=== PATIENT | female | born 1965 | race Two or more races ===

== ENCOUNTER → 2016-07-28 | Day surgery (SDC) | payer OTHER ==
[~2016-07-28] MED LIST: ASPIRIN EC 325 MG TAB PO ONE; DIAZEPAM 5 MG TAB ONE; DIAZEPAM 5 MG TAB PO ONE; FAMOTIDINE 20 MG TAB ONE; FAMOTIDINE 20 MG TAB PO ONE; HEPARIN 10,000 UNIT/10 ML MDV ONE; IOPAMIDOL (ISOVUE-300) 200 ML BTL IV ONE; LIDOCAINE 1% 30 ML SDV ONE; MIDAZOLAM 2 MG/2 ML VIAL ONE; NS 1,000 ML IV ONE; diphenhydrAMINE 25 MG CAP PO ONE; fentaNYL 100 MCG/2 ML INJ ONE
--- NOTE | 2016-07-28 07:49 | CPEKG ---
Heart Rate: 109 RR Interval: 550 P-R Interval: 184 QRSD Interval: 74 QT Interval: 368 QTC Interval: 496 P [place]: 39 QRS [place]: -18 T Wave [place]: 113 EKG Severity - ABNORMAL ECG - EKG Impression: SINUS TACHYCARDIA EKG Impression: LVH WITH SECONDARY REPOLARIZATION ABNORMALITY Electronically Signed By: Rene Burt 28-Jul-2016 14:33:47
[2016-07-28 08:06] LABS: % IMMATURE GRANULYOCYTES 0.4 % (0.0-1.1); ABSOLUTE IMMATURE GRANULOCYTES 0.04 10^3/uL (0.00-0.10); ADD DIFF? NO; ADD MORPH? NO; ADD SCAN? NO; ATYPICAL LYMPHOCYTE FLAG 0 (0-99); FRAGMENT RBC FLAG 0 (0-99); HEMATOCRIT 40.5 % (38.0-47.0); LEFT SHIFT FLG 0 (0-99); LIPEMIA HEMOLYSIS FLAG 90 (0-99); MEAN CELL HEMOGLOBIN CONCENTR. 34.6 g/dL (32.4-36.7); MEAN CELL VOLUME 89.6 fL (81.5-99.8); PLATELET CLUMPS FLAG 10 (0-99); PLATELET COUNT 181 10^3/uL (150-400); RED BLOOD CELL COUNT 4.52 10^6/uL (4.18-5.33); RED CELL DISTRIBUTION WIDTH 13.2 % (11.5-15.2)
[2016-07-28 08:14] LABS: INR 1.22 (0.83-1.16); PROTIME(PATIENT) 15.4 SEC (12.0-15.0)
[2016-07-28 08:19] LABS: ANION GAP 9 mEq/L (8-16); CALCIUM 9.5 mg/dL (8.5-10.4); CARBON DIOXIDE 23 mEq/l (22-31); CHLORIDE 111 mEq/L (97-110); CHOLESTEROL 181 mg/dL (140-220); CHOLESTEROL/HDL RATIO 4.64 RATIO (1.00-4.44); CREATININE 0.7 mg/dL (0.6-1.0); GLOMERULAR FILTRATION RATE > 60; GLUCOSE 94 mg/dL (70-100); HIGH DENSITY LIPOPROTEIN 39 mg/dL (40-85); LDL/HDL RATIO 2.77 RATIO (1.00-3.22); LOW DENSITY LIPOPROTEIN 108 mg/dL (80-100); MAGNESIUM 1.8 mg/dL (1.6-2.3); NON-HIGH DENSITY LIPOPROTEIN 142 mg/dL (90-129); POTASSIUM 4.3 mEq/L (3.5-5.2); SODIUM 143 mEq/L (134-144); TRIGLYCERIDE 171 mg/dL (35-135); VERY LOW DENSITY LIPOPROTEINS 34 mg/dL (8-25)
== END | disposition home or self-care (01) ==
LOC: FCATH 07:22
PROVIDERS: ATTEND Internal Medicine Cardiovascular Disease
DX: I73.9 Peripheral vascular disease, unspecified (principal); Z53.09 Procedure and treatment not carried out because of other contraindication
CPT/HCPCS: 86870-90; 86905-90; 99001-90; J1644; J2250; J3010; Q9967

== ENCOUNTER 2016-08-11 09:34 | Day surgery (SDC) | payer OTHER ==
[2016-08-11] MEDS ORDERED: FAMOTIDINE 20 MG TAB PO ONE (09:37)
[2016-08-11] MEDS ORDERED: NS 1,000 ML IV ONE (09:37)
[2016-08-11] MEDS ORDERED: ASPIRIN EC 325 MG TAB PO ONE ×2 (09:37→10:22)
[2016-08-11] MEDS ORDERED: diphenhydrAMINE 25 MG CAP PO ONE ×2 (09:37→10:21)
[2016-08-11] MEDS ORDERED: DIAZEPAM 5 MG TAB PO ONE (09:37)
--- NOTE | 2016-08-11 10:04 | CPEKG ---
Heart Rate: 80 RR Interval: 750 P-R Interval: 232 QRSD Interval: 76 QT Interval: 440 QTC Interval: 508 QRS [place]: -16 T Wave [place]: 92 EKG Severity - ABNORMAL ECG - EKG Impression: ATRIAL-PACED RHYTHM FIRST DEGREE AV BLOCK EKG Impression: LVH WITH SECONDARY REPOLARIZATION ABNORMALITY EKG Impression: BORDERLINE PROLONGED QT INTERVAL Electronically Signed By: Cesar Diaz 11-Aug-2016 13:51:01
[2016-08-11] MEDS ORDERED: FAMOTIDINE 20 MG TAB ONE (10:21)
[2016-08-11] MEDS ORDERED: DIAZEPAM 5 MG TAB ONE (10:22)
[2016-08-11 10:37] LABS: % IMMATURE GRANULYOCYTES 0.3 % (0.0-1.1); ABSOLUTE IMMATURE GRANULOCYTES 0.04 10^3/uL (0.00-0.10); ADD DIFF? NO; ADD MORPH? NO; ADD SCAN? NO; ATYPICAL LYMPHOCYTE FLAG 0 (0-99); FRAGMENT RBC FLAG 0 (0-99); HEMATOCRIT 41.1 % (38.0-47.0); HEMOGLOBIN 14.2 g/dL (12.6-16.3); LEFT SHIFT FLG 0 (0-99); LIPEMIA HEMOLYSIS FLAG 90 (0-99); MEAN CELL HEMOGLOBIN CONCENTR. 34.5 g/dL (32.4-36.7); MEAN CELL VOLUME 89.7 fL (81.5-99.8); MEAN PLATELET VOLUME 11.7 fL (8.7-11.7); PLATELET CLUMPS FLAG 0 (0-99); PLATELET COUNT 174 10^3/uL (150-400); RED BLOOD CELL COUNT 4.58 10^6/uL (4.18-5.33); RED CELL DISTRIBUTION WIDTH 13.4 % (11.5-15.2)
[2016-08-11 10:48] LABS: INR 1.43 (0.83-1.16); PROTIME(PATIENT) 17.4 SEC (12.0-15.0)
[2016-08-11 10:50] LABS: ANION GAP 10 mEq/L (8-16); CALCIUM 9.5 mg/dL (8.5-10.4); CARBON DIOXIDE 21 mEq/l (22-31); CHLORIDE 112 mEq/L (97-110); CHOLESTEROL 178 mg/dL (140-220); CHOLESTEROL/HDL RATIO 4.34 RATIO (1.00-4.44); CREATININE 0.6 mg/dL (0.6-1.0); GLOMERULAR FILTRATION RATE > 60; GLUCOSE 87 mg/dL (70-100); HIGH DENSITY LIPOPROTEIN 41 mg/dL (40-85); LDL/HDL RATIO 2.49 RATIO (1.00-3.22); LOW DENSITY LIPOPROTEIN 102 mg/dL (80-100); MAGNESIUM 1.8 mg/dL (1.6-2.3); NON-HIGH DENSITY LIPOPROTEIN 137 mg/dL (90-129); POTASSIUM 4.2 mEq/L (3.5-5.2); SODIUM 143 mEq/L (134-144); TRIGLYCERIDE 176 mg/dL (35-135); VERY LOW DENSITY LIPOPROTEINS 35 mg/dL (8-25)
[2016-08-11] MEDS ORDERED: NITROGLYCERIN 1,500 MCG/15 ML VIAL MISC ONE (11:13)
[2016-08-11] MEDS ORDERED: BIVALIRUDIN 250 MG/5 ML VIAL IV ONE (11:13)
[2016-08-11] MEDS ORDERED: MIDAZOLAM 2 MG/2 ML VIAL ONE (11:14)
[2016-08-11] MEDS ORDERED: fentaNYL 100 MCG/2 ML INJ ONE (11:14)
[2016-08-11] MEDS ORDERED: LIDOCAINE 1% 30 ML SDV ONE (11:14)
[2016-08-11] MEDS ORDERED: HEPARIN 10,000 UNIT/10 ML MDV ONE (11:15)
[2016-08-11] MEDS ORDERED: IOPAMIDOL (ISOVUE-300) 200 ML BTL ONE (11:15)
[2016-08-11] MEDS ORDERED: IOPAMIDOL (ISOVUE-370) 150 ML BTL IV ONE (11:15)
--- NOTE | 2016-08-11 13:05 | CPIP ---
[f rep st] INVASIVE CARDIAC PROCEDURE DATE OF PROCEDURE: 08/11/2016 PROCEDURE: Abdominal aortography with runoff. INDICATION: 1. Claudication. 2. 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 ACCESS: Patient was prepped and draped in a sterile fashion. 1% lidocaine was used to anesthetize the right inguinal region. A 6[place]izen [place] introducer sheath was placed selectively into the right commo n femoral artery via modified Seldinger technique. Abdominal aortography, a 6-[place]izen [place] pigtail cathet er was placed in the abdominal aorta just below the renal arteries, and position verified by angiogr aphy. Images were obtained via power injection through the [employer] system. The distal abdominal aor ta had mild diffuse disease. There was no significant stenosis, and the distal abdominal aorta bifu rcated into the right and left common iliac arteries. The left common iliac artery was 100% occlude d in the proximal segment. The left common femoral artery reconstituted distally via collaterals. The left common femoral artery then bifurcated into the superficial femoral artery and profunda femo ral artery. The right superficial femoral artery turned into the popliteal artery. Below the knee, there was 3-vessel runoff. There was no significant disease involving the left common femoral timoteo ry, superficial femoral artery, popliteal artery, and below the knee runoff vessels. COMPLICATIONS: None. CONCLUSIONS: 1. 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 2. Plan is for surgical evaluation. /[id number]/MODL
[2016-08-11] MEDS ORDERED: OXYCODONE/APAP 5/325 TAB ONE (14:57)
[2016-08-11] MEDS ORDERED: OXYCODONE/APAP 5/325 TAB PO PRN (15:15)
[2016-08-11] MEDS ORDERED: NITROGLYCERIN 0.4 MG BTL SL PRN (15:15)
[2016-08-11] MEDS ORDERED: HYDROCODONE/APAP 5/325 TAB PO PRN (15:15)
[2016-08-11] MEDS ORDERED: ONDANSETRON 4 MG/2 ML VIAL IVP PRN (15:15)
[2016-08-11] MEDS ORDERED: ATROPINE SULFATE 1 MG/10 ML SYR IVP PRN (15:15)
== END 2016-08-11 17:00 | disposition home or self-care (01) ==
LOC: FCATH 09:34
PROVIDERS: ATTEND Internal Medicine Cardiovascular Disease
PROC: B41D1ZZ Fluoroscopy of Aorta and Bilateral Lower Extremity Arteries using Low Osmolar Contrast (ICD-10-PCS; principal; 2016-08-11)
DX: I73.9 Peripheral vascular disease, unspecified (principal); I74.5 Embolism and thrombosis of iliac artery; I42.2 Other hypertrophic cardiomyopathy; Z95.810 Presence of automatic (implantable) cardiac defibrillator; I48.92 Unspecified atrial flutter; I48.91 Unspecified atrial fibrillation
CPT/HCPCS: C1760; J0583; J1644; J2250; J3010; Q9967

== ENCOUNTER 2016-09-02 06:15 | Inpatient (IN) | payer OTHER ==
[~2016-09-02 06:15] MED LIST changes: -ASPIRIN EC 325 MG TAB PO ONE; -DIAZEPAM 5 MG TAB ONE; -DIAZEPAM 5 MG TAB PO ONE; -FAMOTIDINE 20 MG TAB ONE; -FAMOTIDINE 20 MG TAB PO ONE; -HEPARIN 10,000 UNIT/10 ML MDV ONE; -IOPAMIDOL (ISOVUE-300) 200 ML BTL IV ONE; -LIDOCAINE 1% 30 ML SDV ONE; -MIDAZOLAM 2 MG/2 ML VIAL ONE; -NS 1,000 ML IV ONE; +ceFAZolin 2 GM/DEXTROSE 100 ML IV ONE; -diphenhydrAMINE 25 MG CAP PO ONE; -fentaNYL 100 MCG/2 ML INJ ONE
[2016-09-02] MEDS ORDERED: BUPIVACAINE 0.5% 30 ML SDV ONE (06:44)
[2016-09-02] MEDS ORDERED: THROMBIN (BOVINE) 20,000 UNIT VIAL TP ONE (06:44)
[2016-09-02] MEDS ORDERED: MIDAZOLAM 2 MG/2 ML VIAL ONE ×2 (07:04→10:16)
[2016-09-02] MEDS ORDERED: CEFAZOLIN 2 GM/DEXTROSE/100 ML BAG IV ONE (07:23)
[2016-09-02] MEDS ORDERED: PHENYLEPHRINE 10 MG/ML SDV ONE (07:32)
[2016-09-02] MEDS ORDERED: PROPOFOL 200 MG/20 ML VIAL ONE (07:32)
[2016-09-02] MEDS ORDERED: DEXAMETHASONE 4 MG/ML VIAL ONE (07:32)
[2016-09-02] MEDS ORDERED: ROCURONIUM 50 MG/5 ML VIAL ONE ×2 (07:32→09:23)
[2016-09-02] MEDS ORDERED: fentaNYL 100 MCG/2 ML INJ ONE ×4 (07:33→11:57)
[2016-09-02 07:35] LABS: INR 1.26 (0.83-1.16); PROTIME(PATIENT) 15.8 SEC (12.0-15.0)
[2016-09-02 07:36] LABS: APTT 30.3 SEC (23.0-38.0)
[2016-09-02] MEDS ORDERED: LR 1,000 ML IV ONE (07:36)
[2016-09-02] MEDS ORDERED: LIDO/EPI 2% **for epidural** 20 ML SDV ONE (07:37)
[2016-09-02] MEDS ORDERED: BUPIVACAINE 0.25% 30 ML SDV ONE (07:38)
[2016-09-02] MEDS ORDERED: CITRATE DEXTROSE SOLN 500 ML BAG ONE (07:45)
[2016-09-02 09:07] LABS: BASE EXCESS -2.8 mEq/L (-2.5-2.5); BICARBONATE 21 mEq/L (22-26); MEASURED OXYGEN SATURATION 100 % (92-95); PCO2 35 mmHg (34-38); PO2 218 mmHg (65-75); TCO2 22 mEq/L (23-27)
[2016-09-02] MEDS ORDERED: REMIFENTANIL HCL 1 MG VIAL ONE (09:37)
[2016-09-02] MEDS ORDERED: HEPARIN 10,000 UNIT/10 ML MDV ONE (09:47)
[2016-09-02] MEDS ORDERED: NARCOTIC DRIP BAG-TOTAL ALL TYPES EP PRN (10:10)
[2016-09-02] MEDS ORDERED: NALOXONE HCL 0.4 MG/ML INJ IVP PRN (10:10)
[2016-09-02] MEDS ORDERED: HYDROmorph 10MCG/ML&BUP 0.0625% in 100ML NS EP SCH (10:10)
[2016-09-02] MEDS ORDERED: ONDANSETRON 4 MG/2 ML VIAL IVP PRN ×2 (10:11→11:40)
[2016-09-02] MEDS ORDERED: PROTAMINE SULFATE 50 MG/5 ML VIAL IVP ONE (10:48)
[2016-09-02] MEDS ORDERED: THROMBIN (BOVINE) 20,000 UNIT SPRAY TP ONE (10:49)
[2016-09-02] MEDS ORDERED: ONDANSETRON 4 MG/2 ML VIAL ONE (11:01)
[2016-09-02] MEDS ORDERED: GLYCOPYRROLATE 0.2 MG/1 ML VIAL ONE (11:07)
[2016-09-02] MEDS ORDERED: NEOSTIGMINE METHYLSULFATE 5 MG/5 ML SYR ONE (11:07)
[2016-09-02 11:36] LABS: BASE EXCESS -3.8 mEq/L (-2.5-2.5); BICARBONATE 21 mEq/L (22-26); MEASURED OXYGEN SATURATION 98 % (92-95); PCO2 39 mmHg (34-38); PO2 113 mmHg (65-75); TCO2 22 mEq/L (23-27)
--- NOTE | 2016-09-02 11:37 | POSTOPPROG ---
Post Op Note Date of Operation: 09/02/16 Surgeon: Darrin Zapata Tissue Technologist: MARGARITO Anesthesiologist: HAL Anesthesia: GET(General Endotracheal) Pre-op Diagnosis: LEFT ILIAC OCCLUSION Post-op Diagnosis: SAME Indication: LIMITING CLAUDICATION Procedure: RETROPERITONEAL LEFT AORTO-FEMORAL BYPASS Findings: GOOD POSTOP PULSES/ COMPLETE LEFT COMMON ILIAC OCCLUSION Inf/Abcess present in the surg proc area at time of surgery?: No Depth: Organ Space EBL: 50-100 Complications: 0 Specimen(s): AORTIC PLAQUE
[2016-09-02] MEDS ORDERED: HYDROmorphONE/DILAUDID 1 MG/ML SYR IVP PRN (11:40)
[2016-09-02] MEDS ORDERED: METOPROLOL TARTRATE 25 MG TAB PO PRN (11:42)
--- NOTE | 2016-09-02 13:08 | GOP ---
[f rep st] OPERATIVE REPORT DATE OF OPERATION: SURGEON: Darrin Zapata MD SENIOR PRODUCT DEVELOPMENT ENGINEER: Girma Mata MD. ANESTHESIOLOGIST: Dr. Cook. PREOPERATIVE DIAGNOSIS: Occluded left iliac artery. POSTOPERATIVE DIAGNOSIS: Occluded left iliac artery. PROCEDURE PERFORMED: Retroperitoneal left aortofemoral bypass. FINDINGS: Patient has an occluded common and external iliac artery. She had soft femoral arteries. Good pulses postoperatively in her feet. ESTIMATED BLOOD LOSS: Less than 150 cc. DESCRIPTION OF PROCEDURE: Patient was taken to the operating room where she received satisfactory g eneral endotracheal anesthesia by Dr. Cook. She also had an epidural placed for postoperative pain control. She was placed in supine position, prepped and draped in usual sterile fashion. A left g roin incision was made and carried down through the subcutaneous tissue down and down through the fernandes perficial fascia. The femoral arterial tree was dissected free and controlled with vessel loops all the way up to the inguinal ligament. After adequate exposure there was achieved, a left lower quad rant oblique incision was made and carried down through subcutaneous tissue. The rectus sheath was incised. The rectus muscle was mobilized circumferentially. Retroperitoneum was entered. The post erior sheath was divided carefully to avoid entry into the abdominal cavity. The abdominal contents were elevated up and retracted away from the retroperitoneum. The left common iliac artery was exp osed and dissection extended up to the aorta and the right common iliac artery. All 3 vessels were then dissected free and controlled with vessel loops. The patient was then systemically heparinized by Dr. Cook. The patient was then given full heparinization. After an adequate circulation time, the vessels were cross clamped. Arteriotomy was made in the common iliac artery extending up into the aorta. Endarterectomy was then done at the origin of the common femoral artery removing all sommer ris and evidence of a previous dissection. The right iliac artery was backflushed, and there was no debris there. And the aorta was flushed as well. After adequate exposure and preparation, an 8 mm Marty-Michael graft was sutured to the common iliac aortic incision in an end-to-side manner with a runn ing 3-0 Prolene suture. Flow was reestablished first through the [place] iliac artery, then flushed out the graft and then flow was reestablished to the right leg. A suture line was reinforced where necessary. Excellent flow in the graft. This graft was then tunneled in a retroperitoneal tunnel i nto the left groin area. End-to-side anastomosis was then done between the graft and the common fem oral artery at that point. This was done with a 4-0 Hemashield suture. It should be noted prior to the suture line completion all vessels were flushed. After completion of the suture line, the flow was first established back up to the [place] iliac artery and down the profunda and then finally alva n the SFA. Good flow was present. Good pulses were palpable in the foot, and suture line appeared to be quite hemostatic. Wounds were irrigated. Heparin was reversed with protamine. The wounds we re sprayed with some topical thrombin and closed in layers using 2-0 Vicryl for the fascia, 3-0 Vicr yl for the subcu, and skin rosas for the skin. The leg incision was infiltrated with 0.5% Marcain e. The wounds were dressed. She tolerated the procedure well and was taken to recovery room in goo d condition. There were no complications. Copy requested to: Dr. Diaz /[id number]/MODL
[2016-09-02] MEDS: D5W 1/2 NS W/ 20 KCl/L 1,000 ML IV SCH (13:43)
--- NOTE | 2016-09-02 14:15 | SOAPPROG ---
SOAP Progress Note Assessment/Plan: Assessment: POSTOP LEFT AORTOFEM BYPASS / PULSES GOOD/ FEET WARM / PAIN CONTROL GOOD / WOUNDS OKAY Plan: AMBULATE IN THE A.M. 09/02/16 14:14 Objective: Vital Signs Temp Pulse Resp BP Pulse Ox 36.3 C 80 16 96/57 L 100 09/02/16 13:25 09/02/16 13:25 09/02/16 13:25 09/02/16 13:25 09/02/16 13:25 09/01/16 09/02/16 09/03/16 05:59 05:59 05:59 Intake Total 1695 Output Total 350 Balance 1345 PT 15.8 SEC (12.0-15.0) H 09/02/16 07:15 INR 1.26 (0.83-1.16) H 09/02/16 07:15 ICD10 Worksheet Patient Problems: Problems Problem Status Onset Atrial fibrillation Acute Atrial fibrillation and flutter Acute Atrial tachycardia Acute Chest pain Acute
[2016-09-02] MEDS ORDERED: ALBUMIN 5% 500 ML IV ONE ×2 (14:30→21:30)
[2016-09-02] MEDS: DILTIAZEM 60 MG TAB PO SCH ×2 (15:09→22:08)
--- NOTE | 2016-09-02 15:22 | GCON ---
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 HISTORY OF PRESENT ILLNESS: The patient is a very pleasant 51-year-old female with an exte nsive past medical history including atrial fibrillation and flutter, hypertrophic cardiomyopathy, p eripheral vascular disease, and she has had an AICD placed. She is, again, examined postoperatively after receiving a retroperitoneal left aortofemoral bypass. In discussion with the patient, she st ates with the exception of pain she is doing quite well. She denies any shortness of breath, cough, or productive sputum. There is no chest pain, pleuritic-type chest pain, or anginal equivalent. T here is no fever or night sweats. PAST MEDICAL HISTORY: Significant for atrial fibrillation, atrial tachycardia, hypotrophic cardiomy opathy, peripheral vascular disease, and AICD placement. PAST SURGICAL HISTORY: She has had a cardiac ablation and cardiac catheterizations. ALLERGIES: No known medications. SOCIAL HISTORY: She is a current smoker every day. No significant alcohol use. Work history: She is retired. She has 5 children. Has excellent family support. MEDICATIONS: Include Cardizem, metoprolol, Tikosyn, and Coumadin. PHYSICAL EXAM: VITAL SIGNS: Blood pressure is 96/55, pulse 80, respirations 13, temperature 36.3, oxygen saturation 100% on 3 L. GENERAL: She is a well-developed, well-nourished, 51-year-old [facility] female who is resting comfortably in no acute distress HEENT: Eyes: BRAULIO. EOMI. Throat shows no erythema or tonsillar hypertrophy. NECK: Supple. No cervical adenopathy. HEART: Regular rat e and rhythm without murmurs, rubs, or gallops. LUNGS: Clear to auscultation. No wheeze or rhonch i. ABDOMEN: Soft, appropriately tender. Bowel sounds are present but diminished. EXTREMITIES: N o clubbing, cyanosis, or edema. LABORATORY DATA: INR is 1.26. Arterial blood gas: pH 7.35, pCO2 of 39, PO2 of 113, bicarb 22, oxy gen saturation is 98%. IMPRESSION: 1. Peripheral vascular disease. 2. Status post retroperitoneal left aortofemoral bypass. 3. AICD placement. 4. History of atrial fibrillation/flutter. 5. Hypertrophic cardiomyopathy. RECOMMENDATIONS: 1. Adequate pain control. 2. DVT and PE prophylaxis. 3. Stress ulcer prophylaxis. 4. Continue the majority of her home medications. 5. Early ambulation. 6. Adequate nutrition. /[id number]/MODL
[2016-09-02] MEDS ORDERED: WARFARIN SODIUM 5 MG TAB PO SCH (16:00)
[2016-09-02] MEDS: DOFETILIDE 0.5 MG CAP PO SCH (19:40)
[2016-09-02] MEDS: METOPROLOL SUCCINATE XR 100 MG TAB PO SCH (19:41)
[2016-09-03 04:17] LABS: % IMMATURE GRANULYOCYTES 0.3 % (0.0-1.1); ABSOLUTE IMMATURE GRANULOCYTES 0.04 10^3/uL (0.00-0.10); ADD DIFF? NO; ADD MORPH? NO; ADD SCAN? NO; ATYPICAL LYMPHOCYTE FLAG 0 (0-99); FRAGMENT RBC FLAG 0 (0-99); HEMATOCRIT 26.2 % (38.0-47.0); HEMOGLOBIN 8.7 g/dL (12.6-16.3); LEFT SHIFT FLG 0 (0-99); LIPEMIA HEMOLYSIS FLAG 80 (0-99); MEAN CELL HEMOGLOBIN 31.2 pg (27.9-34.1); MEAN CELL HEMOGLOBIN CONCENTR. 33.2 g/dL (32.4-36.7); MEAN CELL VOLUME 93.9 fL (81.5-99.8); MEAN PLATELET VOLUME 12.6 fL (8.7-11.7); PLATELET CLUMPS FLAG 10 (0-99); PLATELET COUNT 125 10^3/uL (150-400); RED BLOOD CELL COUNT 2.79 10^6/uL (4.18-5.33); RED CELL DISTRIBUTION WIDTH 13.7 % (11.5-15.2)
[2016-09-03] MEDS ORDERED: ALBUMIN 5% 500 ML BOTTLE IV ONE (04:25)
[2016-09-03] MEDS ORDERED: ALBUMIN 5% 500 ML IV ONE (04:30)
--- NOTE | 2016-09-03 08:05 | SOAPPROG ---
SOAP Progress Note Assessment/Plan: Assessment: POSTOP LEFT AORTOFEM BYPASS / PULSES GOOD/ FEET WARM / PAIN CONTROL GOOD / WOUNDS OKAY Plan: AMBULATE IN THE A.M. 09/02/16 14:14 09/03/16 08:04 AFEBRILE/ PULSES GOOD/ WOUNDS OK/ UO BRISK/ HCT 26/ ABD SOFT/ BP RUNNING LOW BUT PULSE 50 ON BETA-BLOCKERS Objective: Vital Signs Temp Pulse Resp BP Pulse Ox 36.8 C 80 14 86/55 L 100 09/03/16 06:00 09/03/16 06:00 09/03/16 06:00 09/03/16 06:00 09/03/16 06:00 Laboratory Results 09/03/16 03:35 09/02/16 09/03/16 09/04/16 05:59 05:59 05:59 Intake Total 4476.9 Output Total 1780 Balance 2696.9 PT 15.8 SEC (12.0-15.0) H 09/02/16 07:15 INR 1.26 (0.83-1.16) H 09/02/16 07:15 ICD10 Worksheet Patient Problems: Problems Problem Status Onset Atrial fibrillation Acute Atrial fibrillation and flutter Acute Atrial tachycardia Acute Chest pain Acute
[2016-09-03] MEDS: DOFETILIDE 0.5 MG CAP PO SCH ×2 (08:10→19:36)
[2016-09-03] MEDS: METOPROLOL SUCCINATE XR 100 MG TAB PO SCH ×2 (08:12→19:35)
[2016-09-03] MEDS: DILTIAZEM 60 MG TAB PO SCH ×3 (08:12→22:07)
[2016-09-03] MEDS ORDERED: REGARDING ANTICOAG MISC SCH (09:00)
[2016-09-03] MEDS ORDERED: DC NARCS MISC SCH (09:00)
--- NOTE | 2016-09-03 09:34 | PDINTPN ---
Sock Drier Progress Note Assessment/Plan: Assessment: * Status post aorto fem bypass * Pain-controlled * Respiratory-stable * Atrial fib * Status post AICD placement * Hypertrophic cardiomyopathy Plan: Continue present care Subjective: Pain markedly improved. Complains of some nausea. Objective: Vital Signs Temp Pulse Resp BP Pulse Ox 36.9 C 80 13 92/53 L 95 09/03/16 08:00 09/03/16 08:00 09/03/16 08:00 09/03/16 08:00 09/03/16 08:00 Laboratory Results 09/03/16 03:35 09/02/16 09/03/16 09/04/16 05:59 05:59 05:59 Intake Total 4476.9 Output Total 1780 Balance 2696.9 PT 15.8 SEC (12.0-15.0) H 09/02/16 07:15 INR 1.26 (0.83-1.16) H 09/02/16 07:15 Physical Exam - Physical Exam General Appearance: alert, no apparent distress EENT: PERRL/EOMI, normal ENT inspection, pharynx normal, TMs normal Neck: non-tender, full range of motion, supple, normal inspection Respiratory: chest non-tender, lungs clear, normal breath sounds Cardiac/Chest: systolic murmur, irregularly irregular Abdomen: normal bowel sounds, non-tender, soft Pelvic Exam: deferred Rectal: deferred Skin: normal color, warm/dry Extremities: normal range of motion, non-tender, normal inspection, normal capillary refill Neuro/Psych: no motor/sensory deficits, alert, normal mood/affect, oriented x 3 ICD10 Worksheet Patient Problems: Problems Problem Status Onset Atrial fibrillation Acute Atrial fibrillation and flutter Acute Atrial tachycardia Acute Chest pain Acute
--- NOTE | 2016-09-03 10:17 | SOAPPROG ---
SOAP Progress Note Assessment/Plan: Assessment:s/p left aorto fem bypass, thoracic epidural POD 1. Epidural turned down overnight secondary to BP issues, now no sensory dermatome but patient pain adequately controlled. Plan: Epidural was discontinued this am since pain controlled without sensory dermatome and need to restart coumadin. 09/03/16 10:14 Subjective: pain tolerable. want to get out of bed. Objective: Vital Signs Temp Pulse Resp BP Pulse Ox 36.9 C 80 13 92/53 L 95 09/03/16 08:00 09/03/16 08:00 09/03/16 08:00 09/03/16 08:00 09/03/16 08:00 Laboratory Results 09/03/16 03:35 09/02/16 09/03/16 09/04/16 05:59 05:59 05:59 Intake Total 4476.9 Output Total 1780 Balance 2696.9 PT 15.8 SEC (12.0-15.0) H 09/02/16 07:15 INR 1.26 (0.83-1.16) H 09/02/16 07:15 Physical Exam - Physical Exam General Appearance: alert, no apparent distress Back: Normal inspection (epidural site clear with no redness or tenderness ) Skin: normal color Neuro/Psych: no motor/sensory deficits, normal mood/affect, oriented x 3 ICD10 Worksheet Patient Problems: Problems Problem Status Onset Atrial fibrillation Acute Atrial fibrillation and flutter Acute Atrial tachycardia Acute Chest pain Acute
[2016-09-03 10:20] LABS: HEMATOCRIT 24.2 % (38.0-47.0); HEMOGLOBIN 8.2 g/dL (12.6-16.3)
[2016-09-03] MEDS: OXYCODONE/APAP 5/325 TAB PO PRN ×3 (11:47→19:35)
[2016-09-03] MEDS: D5W 1/2 NS W/ 20 KCl/L 1,000 ML IV SCH (13:46)
[2016-09-03 16:10] LABS: HEMATOCRIT 27.9 % (38.0-47.0); HEMOGLOBIN 9.1 g/dL (12.6-16.3)
[2016-09-04] MEDS: OXYCODONE/APAP 5/325 TAB PO PRN ×5 (00:29→19:55)
[2016-09-04] MEDS: D5W 1/2 NS W/ 20 KCl/L 1,000 ML IV SCH ×2 (00:29→10:45)
[2016-09-04 02:29] LABS: % IMMATURE GRANULYOCYTES 0.3 % (0.0-1.1); ABSOLUTE IMMATURE GRANULOCYTES 0.04 10^3/uL (0.00-0.10); ADD DIFF? NO; ADD MORPH? NO; ADD SCAN? NO; ATYPICAL LYMPHOCYTE FLAG 0 (0-99); FRAGMENT RBC FLAG 0 (0-99); HEMATOCRIT 26.3 % (38.0-47.0); HEMOGLOBIN 8.7 g/dL (12.6-16.3); LEFT SHIFT FLG 0 (0-99); LIPEMIA HEMOLYSIS FLAG 80 (0-99); MEAN CELL HEMOGLOBIN 31.3 pg (27.9-34.1); MEAN CELL HEMOGLOBIN CONCENTR. 33.1 g/dL (32.4-36.7); MEAN CELL VOLUME 94.6 fL (81.5-99.8); MEAN PLATELET VOLUME 11.9 fL (8.7-11.7); PLATELET CLUMPS FLAG 0 (0-99); PLATELET COUNT 112 10^3/uL (150-400); RED BLOOD CELL COUNT 2.78 10^6/uL (4.18-5.33); RED CELL DISTRIBUTION WIDTH 13.7 % (11.5-15.2)
[2016-09-04 02:40] LABS: INR 1.3 (0.83-1.16); PROTIME(PATIENT) 16.2 SEC (12.0-15.0)
[2016-09-04 02:41] LABS: APTT 30.4 SEC (23.0-38.0)
[2016-09-04] MEDS ORDERED: ALBUMIN 5% 500 ML BOTTLE IV ONE (02:45)
[2016-09-04] MEDS ORDERED: ALBUMIN 5% 500 ML IV ONE ×2 (03:00→09:30)
[2016-09-04 03:01] LABS: ALANINE AMINOTRANSFERASE 22 IU/L (9-52); ALBUMIN 3.6 g/dL (3.5-5.0); ALKALINE PHOSPHATASE 45 IU/L (38-126); ANION GAP 8 mEq/L (8-16); ASPARTATE AMINOTRANSFERASE 22 IU/L (14-46); BILIRUBIN,TOTAL 0.8 mg/dL (0.1-1.4); BILIRUBIN-CONJUGATED 0.4 mg/dL (0.0-0.5); BILIRUBIN-UNCONJUGATED 0.4 mg/dL (0.0-1.1); CALCIUM 8.6 mg/dL (8.5-10.4); CARBON DIOXIDE 22 mEq/l (22-31); CHLORIDE 111 mEq/L (97-110); CREATININE 0.6 mg/dL (0.6-1.0); GLOMERULAR FILTRATION RATE > 60; GLUCOSE 107 mg/dL (70-100); POTASSIUM 4.1 mEq/L (3.5-5.2); SODIUM 141 mEq/L (134-144); TOTAL PROTEIN 5.6 g/dL (6.3-8.2)
[2016-09-04] MEDS: DILTIAZEM 60 MG TAB PO SCH ×3 (10:40→22:10)
--- NOTE | 2016-09-04 10:43 | SOAPPROG ---
SOAP Progress Note Assessment/Plan: Assessment: POSTOP LEFT AORTOFEM BYPASS / PULSES GOOD/ FEET WARM / PAIN CONTROL GOOD / WOUNDS OKAY Plan: AMBULATE IN THE A.M. 09/02/16 14:14 09/03/16 08:04 AFEBRILE/ PULSES GOOD/ WOUNDS OK/ UO BRISK/ HCT 26/ ABD SOFT/ BP RUNNING LOW BUT PULSE 50 ON BETA-BLOCKERS 09/04/16 10:42 abd soft/ wounds ok/ uo ok/ afebrile/ bp runs low but good perfusion/ pulses ok / ABIs good/ hct stable Objective: Vital Signs Temp Pulse Resp BP Pulse Ox 37.4 C 80 17 84/50 L 95 09/04/16 08:00 09/04/16 10:40 09/04/16 08:00 09/04/16 10:40 09/04/16 08:00 Laboratory Results 09/04/16 02:20 09/04/16 02:20 09/03/16 09/04/16 09/05/16 05:59 05:59 05:59 Intake Total 4476.9 3630 Output Total 1780 1025 250 Balance 2696.9 2605 -250 PT 16.2 SEC (12.0-15.0) H 09/04/16 02:20 INR 1.30 (0.83-1.16) H 09/04/16 02:20 ICD10 Worksheet Patient Problems: Problems Problem Status Onset Atrial fibrillation Acute Atrial fibrillation and flutter Acute Atrial tachycardia Acute Chest pain Acute
[2016-09-04] MEDS: DOFETILIDE 0.5 MG CAP PO SCH ×2 (10:45→19:55)
[2016-09-04] MEDS ORDERED: ENOXAPARIN 40 MG/0.4 ML SYR SC SCH (10:45)
--- NOTE | 2016-09-04 10:58 | PDINTPN ---
Library Page Progress Note Assessment/Plan: Assessment/Plan: * Status post aorto fem bypass * Pain-controlled * Respiratory-stable * Hypotension-appears to be secondary to hypovolemia. -currently on albumin -increase IV fluids -will hold Cardizem and labetalol for now * Atrial fib * Status post AICD placement * Hypertrophic cardiomyopathy Subjective: Sitting up in chair. Feels markedly better. Denies any shortness of breath, cough or production of sputum. Pain is well controlled Objective: Vital Signs Temp Pulse Resp BP Pulse Ox 37.4 C 80 17 84/50 L 95 09/04/16 08:00 09/04/16 10:40 09/04/16 08:00 09/04/16 10:40 09/04/16 08:00 Laboratory Results 09/04/16 02:20 09/04/16 02:20 09/03/16 09/04/16 09/05/16 05:59 05:59 05:59 Intake Total 4476.9 3630 Output Total 1780 1025 250 Balance 2696.9 2605 -250 PT 16.2 SEC (12.0-15.0) H 09/04/16 02:20 INR 1.30 (0.83-1.16) H 09/04/16 02:20 Physical Exam - Physical Exam General Appearance: alert, no apparent distress EENT: PERRL/EOMI, normal ENT inspection Neck: non-tender, full range of motion, supple, normal inspection Respiratory: chest non-tender, lungs clear, normal breath sounds Cardiac/Chest: normal peripheral pulses, regular rate, rhythm Abdomen: soft, No non-tender, No guarding, No rebound Pelvic Exam: deferred Rectal: deferred Skin: normal color, warm/dry Extremities: normal range of motion, non-tender, normal inspection, normal capillary refill Neuro/Psych: no motor/sensory deficits, alert, normal mood/affect, oriented x 3 ICD10 Worksheet Patient Problems: Problems Problem Status Onset Atrial fibrillation Acute Atrial fibrillation and flutter Acute Atrial tachycardia Acute Chest pain Acute
[2016-09-04 11:33] LABS: HEMATOCRIT 23.6 % (38.0-47.0); HEMOGLOBIN 7.8 g/dL (12.6-16.3)
[2016-09-04 12:27] LABS: HEMATOCRIT 24.2 % (38.0-47.0); HEMOGLOBIN 7.8 g/dL (12.6-16.3)
--- NOTE | 2016-09-04 13:36 | CPIP ---
[f rep st] INVASIVE CARDIAC PROCEDURE DATE OF PROCEDURE: 09/03/2016 The patient was seen for arterial studies postop after a left aortofemoral bypass. Tracings demonst rate good distal PVR tracings with ankle-brachial indices greater than 0.9 bilaterally and pulsatile flow down to the digital levels. There were no complications. She tolerated the procedure well. /[id number]/MODL
--- NOTE | 2016-09-04 13:51 | GCON ---
[f rep st] CONSULTATION REFERRING PHYSICIAN: Darrin Zapata MD This is a very pleasant 51-year-old female with a past history of hypertrophic cardiomyopathy, status post ICD, significant amount of left atrial enlargement secondary to hypertrophic cardiomyopathy, with resultant atrial fibrillation/ atrial flutter and multiple atrial tachycardia, status post multiple ablations in the past, who has peripheral vascular disease, and came in for femoral- popliteal bypass. The patient underwent femoral-popliteal bypass 3 days back. She is currently being evaluated for hypotension. The patient denies light headedness, dizziness, presyncope or syncope. No chest pain or pressure. She is currently n.p.o. and hence, complains of hunger. MEDICATIONS: Her medications have been optimized in the inpatient as well as outpatient setting. REVIEW OF SYSTEMS: Other than the above not passing flatus. Hungry, but otherwise in no distress. PAST MEDICAL HISTORY: 1. Hypertrophic cardiomyopathy, significant left atrial enlargement, status post ICD, status post PVI, status post atrial tachycardia ablation. Currently stabilized on Tikosyn, Cardizem, and high dose metoprolol. 2. Peripheral vascular disease, status post femoral-popliteal bypass. PAST SURGICAL HISTORY: Recent femoral-popliteal bypass. ALLERGIES: None. SOCIAL HISTORY: Current smoker. No significant alcohol use. She is retired, has 5 children. Excellent family support. CURRENT MEDICATIONS: Include: 1. Tikosyn 500 mcg p.o. b.i.d. 2. Metoprolol 100/200 mg. 3. Coumadin. 4. Diltiazem 50 mg t.i.d. PHYSICAL EXAM: VITAL SIGNS: Blood pressure of 84/50, pulse of 80, respiratory rate 16, temperature 36.3, oxygen saturation 100%. GENERAL: Well-developed, well-nourished 51-year-old female in no acute distress. HEENT: Pupils equally reacting to light, accommodating. No thyromegaly, no lymphadenopathy. CHEST: Good air entry, bilaterally equal. No rales, rhonchi, rub. S1, S2 regular. No S3. No murmurs noted. ABDOMEN: Soft, nontender. No guarding or rigidity. Decreased bowel sounds. EXTREMITIES: No clubbing, or edema. IMPRESSION AND PLAN: This is a 51-year-old unfortunate female with extensive history of hypertrophic cardiomyopathy, atrial fibrillation/atrial flutter, atrial tachycardia, with multiple electrophysiological-related procedures. She is currently stable on Tikosyn, metoprolol, and Cardizem and is doing well in the postoperative period. I have evaluated the patient's telemonitor, and the patient had a couple of runs of nonsustained ventricular tachycardia on postoperative, however, it has stabilized over the past 48 hours. She has had a very short run of supraventricular tachycardia. 1. Atrial tachycardia. She is currently stable. Continue Tikosyn along with metoprolol (restart when systolic blood pressure greater than 90 (complete hypotension). Hypotension: I have gone over the patient's past history, and she tends to remain a little hypotensive, based on previous hospital admission. However, considering she is currently nil by mouth, her ejection fraction is normal, I would increase her IV drip to 125 cc/hour till she is taking oral intake. 2. Implantable cardioverter defibrillator. Currently, she is A paced, V sensed. Will not make any changes to the same. 3. Peripheral vascular disease. She has undergone successful fem pop bypass. Thank you for letting us participate in the patient's care. Please feel free to call us for questions you may have. /[id number]/MODL MTDD
[2016-09-04] MEDS: METOPROLOL SUCCINATE XR 100 MG TAB PO SCH ×2 (14:02→19:55)
[2016-09-04 17:29] LABS: HEMOGLOBIN 11.2 g/dL (12.6-16.3)
[2016-09-04] MEDS ORDERED: BISACODYL 10 MG SUPP PR PRN (19:16)
[2016-09-04] MEDS ORDERED: LACTULOSE 20 GM/30 ML UDCUP PO PRN (19:16)
[2016-09-04] MEDS ORDERED: POLYETHYLENE GLYCOL 3350 17 GM PKT PO PRN (19:16)
[2016-09-04] MEDS ORDERED: MAGNESIUM HYDROXIDE 30 ML UDCUP PO PRN (19:16)
[2016-09-04] MEDS: SENNOSIDES/DOCUSATE SODIUM TAB PO SCH (19:55)
[2016-09-05] MEDS: OXYCODONE/APAP 5/325 TAB PO PRN ×7 (01:21→23:24)
[2016-09-05] MEDS ORDERED: BISACODYL 10 MG SUPP PR ONE (08:00)
[2016-09-05] MEDS ORDERED: ENOXAPARIN 40 MG/0.4 ML SYR SC ONE (08:25)
[2016-09-05] MEDS: METOPROLOL SUCCINATE XR 100 MG TAB PO SCH ×2 (08:30→20:35)
[2016-09-05] MEDS: DOFETILIDE 0.5 MG CAP PO SCH ×2 (08:30→19:51)
[2016-09-05] MEDS: DILTIAZEM 60 MG TAB PO SCH ×3 (09:00→23:14)
[2016-09-05] MEDS: SENNOSIDES/DOCUSATE SODIUM TAB PO SCH ×2 (09:00→19:51)
--- NOTE | 2016-09-05 11:11 | PDINTPN ---
Prisoner Classification Interviewer Progress Note Assessment/Plan: Assessment: * Status post aorto fem bypass. Good pulses on left documented yesterday by arterial studies. * Pain-improved, controlled * Respiratory-stable, off oxygen * Hypotension- secondary to hypovolemia, resolved with fluids. * Acute blood-loss anemia: Hematocrit 34 post 2 units yesterday. H&H pending from today. * Atrial fib: Paced * Status post AICD placement * Hypertrophic cardiomyopathy Plan: Continue care. Await blood work. Continue pain control as needed, ambulation. Follow H&H. Can transfer to a medical-surgical bed/status today. Subjective: Up walking in her room. Complains of some residual left lower extremity pain and some left groin pain. Otherwise doing well. Denies shortness of breath. Objective: Vital Signs Temp Pulse Resp BP Pulse Ox 37.5 C 80 22 H 97/58 L 94 09/04/16 23:43 09/05/16 04:00 09/05/16 04:00 09/05/16 04:00 09/05/16 04:00 09/04/16 09/05/16 09/06/16 05:59 05:59 05:59 Intake Total 3630 2464 Output Total 1025 1850 Balance 2605 614 PT 16.2 SEC (12.0-15.0) H 09/04/16 02:20 INR 1.30 (0.83-1.16) H 09/04/16 02:20 Lab: Pending from today. Physical Exam - Physical Exam General Appearance: alert, no apparent distress, other (Up walking in her room.) EENT: PERRL/EOMI, other (On room air) Neck: normal inspection Respiratory: lungs clear, decreased breath sounds (At bases) Cardiac/Chest: regular rate, rhythm (Paced) Abdomen: normal bowel sounds, non-tender, soft, other (Some tenderness, resolving blood related to left groin) Skin: normal color, warm/dry Extremities: No pedal edema Neuro/Psych: no motor/sensory deficits, No cognition abnormalities ICD10 Worksheet Patient Problems: Problems Problem Status Onset Atrial fibrillation and flutter Acute Atrial tachycardia Acute Atrial fibrillation Acute Chest pain Acute
[2016-09-05 12:59] LABS: ANION GAP 10 mEq/L (8-16); CARBON DIOXIDE 22 mEq/l (22-31); CHLORIDE 110 mEq/L (97-110); CREATININE 0.5 mg/dL (0.6-1.0); GLOMERULAR FILTRATION RATE > 60; GLUCOSE 88 mg/dL (70-100); POTASSIUM 3.7 mEq/L (3.5-5.2); SODIUM 142 mEq/L (134-144)
[2016-09-05 13:00] LABS: CALCIUM 8.9 mg/dL (8.5-10.4)
[2016-09-05 13:03] LABS: HEMATOCRIT 31.3 % (38.0-47.0); HEMOGLOBIN 10.6 g/dL (12.6-16.3); MEAN CELL HEMOGLOBIN 29.3 pg (27.9-34.1); MEAN CELL HEMOGLOBIN CONCENTR. 33.9 g/dL (32.4-36.7); MEAN CELL VOLUME 86.5 fL (81.5-99.8); RED BLOOD CELL COUNT 3.62 10^6/uL (4.18-5.33); RED CELL DISTRIBUTION WIDTH 19.4 % (11.5-15.2)
--- NOTE | 2016-09-05 22:38 | SOAPPROG ---
SOAP Progress Note Assessment/Plan: Assessment: POSTOP LEFT AORTOFEM BYPASS / PULSES GOOD/ FEET WARM / PAIN CONTROL GOOD / WOUNDS OKAY Plan: AMBULATE IN THE A.M. 09/02/16 14:14 09/03/16 08:04 AFEBRILE/ PULSES GOOD/ WOUNDS OK/ UO BRISK/ HCT 26/ ABD SOFT/ BP RUNNING LOW BUT PULSE 50 ON BETA-BLOCKERS 09/04/16 10:42 abd soft/ wounds ok/ uo ok/ afebrile/ bp runs low but good perfusion/ pulses ok / ABIs good/ hct stable 09/05/16 22:36 PULSES GOOD/ WOUNDS OK/ AFEBRILE/ HCT STABLE/ BP BETTER WITH BLOOD AND DECREASED BETABLOCKERS/ HOME SOON WHEN AMBULATING BETTER Objective: Vital Signs Temp Pulse Resp BP Pulse Ox 37.4 C 80 12 104/74 98 09/05/16 20:00 09/05/16 20:35 09/05/16 20:00 09/05/16 20:35 09/05/16 20:00 Laboratory Results 09/05/16 05:40 09/05/16 05:40 09/04/16 09/05/16 09/06/16 05:59 05:59 05:59 Intake Total 3630 2464 810 Output Total 1025 1850 Balance 2605 614 810 PT 16.2 SEC (12.0-15.0) H 09/04/16 02:20 INR 1.30 (0.83-1.16) H 09/04/16 02:20 ICD10 Worksheet Patient Problems: Problems Problem Status Onset Atrial fibrillation Acute Atrial fibrillation and flutter Acute Atrial tachycardia Acute Chest pain Acute
[2016-09-06 04:32] LABS: HEMATOCRIT 31.5 % (38.0-47.0); HEMOGLOBIN 10.6 g/dL (12.6-16.3); MEAN CELL HEMOGLOBIN 29.1 pg (27.9-34.1); MEAN CELL HEMOGLOBIN CONCENTR. 33.7 g/dL (32.4-36.7); MEAN CELL VOLUME 86.5 fL (81.5-99.8); RED BLOOD CELL COUNT 3.64 10^6/uL (4.18-5.33); RED CELL DISTRIBUTION WIDTH 18.9 % (11.5-15.2)
[2016-09-06] MEDS: OXYCODONE/APAP 5/325 TAB PO PRN ×3 (08:16→21:21)
[2016-09-06] MEDS: DOFETILIDE 0.5 MG CAP PO SCH ×2 (08:16→21:20)
[2016-09-06] MEDS: DILTIAZEM 60 MG TAB PO SCH ×3 (08:17→21:24)
[2016-09-06] MEDS: SENNOSIDES/DOCUSATE SODIUM TAB PO SCH ×2 (08:17→21:00)
[2016-09-06] MEDS: METOPROLOL SUCCINATE XR 100 MG TAB PO SCH ×2 (12:47→21:19)
--- NOTE | 2016-09-06 13:42 | SOAPPROG ---
SOAP Progress Note Assessment/Plan: Assessment/Plan: 51 Y F c cardiac hx s/p aortofem bypass, POD#4. Ileus. Resolved. Regular diet today. Restart coumadin and start therapeutic lovenox today. BP low, but stable. Better since transfusion. Wounds clean. Cont PT/OT--pt doing well. Dispo: possibly home in am. Pt lives in [facility] with . Has a son that can visit with her while is at work. Will need lovenox bridging. S: +incisional pain. pain meds helping. +multiple BMs today. walking in room well. O: gen: alert, nad heent: ncat, mmm chest: ctab abd: soft, +BS, inc cdi ext: palpable pedal pulses, L>R. inc cdi 09/06/16 13:38 Objective: Vital Signs Temp Pulse Resp BP Pulse Ox 36.8 C 80 16 101/61 96 09/06/16 12:00 09/06/16 12:00 09/06/16 12:00 09/06/16 12:00 09/06/16 12:00 Laboratory Results 09/06/16 04:25 09/05/16 05:40 09/05/16 09/06/16 09/07/16 05:59 05:59 05:59 Intake Total 2464 1110 Output Total 1850 1 Balance 614 1109 PT 16.2 SEC (12.0-15.0) H 09/04/16 02:20 INR 1.30 (0.83-1.16) H 09/04/16 02:20 ICD10 Worksheet Patient Problems: Problems Problem Status Onset Atrial fibrillation Acute Atrial fibrillation and flutter Acute Atrial tachycardia Acute Chest pain Acute
[2016-09-06] MEDS ORDERED: WARFARIN SODIUM 5 MG TAB PO SCH (16:00)
[2016-09-06] MEDS: ENOXAPARIN 60 MG/0.6 ML SYR SC SCH (21:20)
[2016-09-07 00:12] VITALS: PULSE 80; TEMP 98.4
[2016-09-07 05:23] LABS: INR 2.11 (0.83-1.16); PROTIME(PATIENT) 23.8 SEC (12.0-15.0)
[2016-09-07] MEDS: OXYCODONE/APAP 5/325 TAB PO PRN ×2 (05:51→09:25)
[2016-09-07 08:01] VITALS: RESP 14; O2SAT 95
[2016-09-07] MEDS: ENOXAPARIN 60 MG/0.6 ML SYR SC SCH (08:42)
[2016-09-07] MEDS: METOPROLOL SUCCINATE XR 100 MG TAB PO SCH (08:43)
[2016-09-07] MEDS: DOFETILIDE 0.5 MG CAP PO SCH (08:43)
[2016-09-07] MEDS: DILTIAZEM 60 MG TAB PO SCH (08:43)
[2016-09-07] MEDS: SENNOSIDES/DOCUSATE SODIUM TAB PO SCH (08:43)
[2016-09-07 08:44] VITALS: BP 109/78
== END 2016-09-07 09:44 | disposition home or self-care (01) | DRG 271 ==
LOC: F3E 06:15 → OBSVTOIN 06:15 → F2N 13:04
PROVIDERS: ADMIT Surgery; ATTEND Surgery
PROC: 04100JJ Bypass Abdominal Aorta to Left Femoral Artery with Synthetic Substitute, Open Approach (ICD-10-PCS; principal; 2016-09-02 07:15)
PROC: 30233N1 Transfusion of Nonautologous Red Blood Cells into Peripheral Vein, Percutaneous Approach (ICD-10-PCS; 2016-09-04)
DX: I73.9 Peripheral vascular disease, unspecified (principal); I42.1 Obstructive hypertrophic cardiomyopathy; I47.1 Supraventricular tachycardia; D62 Acute posthemorrhagic anemia; I48.91 Unspecified atrial fibrillation; I95.9 Hypotension, unspecified; E86.1 Hypovolemia; Z95.810 Presence of automatic (implantable) cardiac defibrillator
CPT/HCPCS: 86905-90; 97116-GP; 97161-GP; 97166-GO; 97530-GO; 97530-GP; 97535-GO; C1768; J0690; J1100; J1170; J1644; J1650; J2250; J2370; J2405; J2704; J2710; J2720; J3010; J7060; P9016; P9041